=== PATIENT | female | born 1950 | race Caucasian/White ===

== ENCOUNTER 2024-03-01 13:05 | Emergency (ER) | payer MEDICARE, OTHER, SELFPAY ==
[2024-03-01 13:12] VITALS: BP 169/88
[2024-03-01 14:23] VITALS: BMI 34.8
--- NOTE | 2024-03-01 15:49 | ED.SKININJ ---
HPI-Injury
General
Chief Complaint: Skin Problem
Source: patient
Exam Limitations: none
Time Seen by Provider: 03/01/24 14:23
Nursing documentation reviewed up to this point in time: agreed with
History of Present Illness-Injury
Initial Injury comments:
73 yo female with hx NIDDM, HTN, HLD presents with itchy vesicular red rash various parts of her body. Rash started 3 days after she started watering neighbors tomato plants, garden and watching her cats, one which is an out door cat. Has been
taking Benadryl, topical steroid cream with not much relief.Denies fever/chills. Feels well otherwise.
Past History
Past History
ED Past Medical History: HTN, Hypercholesterolemia and NIDDM
ED Past Surgical History: None
Social History
Tobacco: Non-smoker
Alcohol: None
Personal: Single
Living: alone
Review of Systems
Review of Systems
Allergies reviewed?: Yes
All Other Systems: ROS reviewed and negative except as documented in HPI and ROS
Constitutional: Denies fever or chills
Respiratory: Denies trouble breathing
Skin: Reports itching and rash
Phy Exam
Physical Exam
Physical Exam:
GENERAL: No acute distress. A&Ox3.
CONSTITUTIONAL: Afebrile.
EYES: clear conjunctivae normal
ENMT: moist mucus membranes, Pharynx nl
RESPIRATORY: Regular respirations, nonlabored, lungs clear.
CARDIOVASCULAR: Regular rate and rhythm, no murmurs, no rubs.
GI: Soft, nontender, normal BS
MUSCULOSKELETAL: Moves with ease. Well perfused.
SKIN: Warm, dry, pink, numerous patches of vesicles on erythematous base, varying sizes, over anterior and medial thighs, both arms, upper chest.
PSYCH: Normal mood and affect. Well kept, interactive and appropriate
NEUROLOGIC: Awake, alert and oriented. No focal neurological deficits
Course
Vital Signs
Initial and Last Documented VS:
Initial Vital Signs
Temp Pulse Resp BP Pulse Ox
97.8 F 97 18 169/88 96
03/01/24 13:12 03/01/24 13:12 03/01/24 13:12 03/01/24 13:12 03/01/24 13:12
Last Documented Vital Signs
Temp Pulse Resp BP Pulse Ox
97.8 F 97 18 169/88 96
03/01/24 13:12 03/01/24 13:12 03/01/24 13:12 03/01/24 13:12 03/01/24 13:12
MDM/Problems Addressed
Differential Diagnosis Includes:
rhus dermatitis
MDM/Problems Addressed:
73 yo female with hx NIDDM, HTN, HLD presents with itchy vesicular red rash various parts of her body. Rash started 3 days after she started watering neighbors tomato plants, garden and watching her cats, one which is an out door cat. Has been
taking Benadryl, topical steroid cream with not much relief.Denies fever/chills. Feels well otherwise.
Moderate case of contact dermatitis (poison ingris, oak or sumac)
Pt is NIDDM and knows to check her sugars frequently while on steroids.
Chronic conditions affecting care: DM
*Critical Care Note
Total Time (30-74mins, 75-104mins- exclusive of procedures): Not Applicable
ED Attending Note
-
Portions of this chart may have been created with voice recognition software.� Occasional wrong word or��sound alike� substitutions may have occurred due to the inherent limitations of voice recognition software.
Discharge Plan
Departure
Patient Disposition: Home (Routine Discharge)
Date of Disposition: 03/01/24
Time of Disposition: 14:59
Patient with high blood pressure during this ER visit?: No
Condition: Good
Discharge Problem:
Dermatitis due to plants, including poison ingris, sumac, and oak
Instructions: Poison Ingris, Poison Farber, Poison Sumac (DC), Prednisone
Prescriptions:
New
prednisone 10 mg Tablet
See Rx Instructions .ROUTE .COMPLEX Qty: 45 0RF
Rx Instructions:
Take By Mouth:
50 mg daily x3 days, 40 mg daily x3 days,
30 mg daily x3 days, 20 mg daily x3 days,
10 mg daily x3 days
No Action
mupirocin 2 % ointment
1 applic topical TID Qty: 30 0RF
amoxicillin-pot clavulanate 875 MG/125 MG tablet
1 tab PO Q12 Qty: 20 0RF
Referrals:
Shawn Machuca MD [Family Provider] - As needed
Activity Restrictions/Additional Instructions:
As we discussed, while on Prednisone check you blood sugars 3 times a day. If your blood sugar goes above 180 stop the prednisone.
Continue Benadryl 25-50 mg every 4 hours. It can make you sleepy so do not drive or operate any machinery within 6 hours of taking it.
Interventions
Interventions:
*Risk Screen - Suicide Last Done: 03/01/24 13:12
*General Assessment Last Done: 03/01/24 13:12
*Neglect/Abuse Screening Last Done: 03/01/24 13:12
ED- Fall Risk Assessment Last Done: 03/01/24 14:36
*ED COVID-19 Vaccine History Last Done: 03/01/24 14:24
*Nursing Disposition Last Done: 03/01/24 15:09
ED-Skin Assessment Last Done: 03/01/24 14:36
Discharge Date and Time
Discharge Date/Time: 03/01/24 15:09
Print Language: BAHAMIAN
== END 2024-03-01 15:09 | disposition home or self-care (01) ==
LOC: EMR 13:05
PROVIDERS: EMERGENCY PHYSICIAN Emergency Medicine; FAMILY PHYSICIAN Family Medicine
DX: L23.7 Allergic contact dermatitis due to plants, except food (principal); E11.9 Type 2 diabetes mellitus without complications; E78.00 Pure hypercholesterolemia, unspecified; I10 Essential (primary) hypertension
CPT/HCPCS: 99282

== ENCOUNTER → 2024-11-26 13:40 | Outpatient (REF) | payer MEDICARE, OTHER, SELFPAY | LOC: HWRCS 13:40 | PROVIDERS: ATTENDING PHYSICIAN Internal Medicine Cardiovascular Disease; FAMILY PHYSICIAN Family Medicine | DX: I10 Essential (primary) hypertension (principal); I35.0 Nonrheumatic aortic (valve) stenosis | CPT/HCPCS: 93306 ==